=== PATIENT | female | born 1975 | race Caucasian/White ===

== ENCOUNTER 2016-10-30 18:50 | Emergency (ER) | payer SELFPAY ==
[~2016-10-30] VITALS: Ht 160 cm; Wt 113.4 kg
[2016-10-30 19:56] VITALS: BP 116/51
--- NOTE | 2016-10-30 20:30 | NUR ---
41 Y/O F W/C/O choked on chicken bone at restaurant about 5:30pm. pt was able to cough up bone on her own. PT C/O BURNING PAIN ON THROAT AND ESOPHAGUS. PT ON MONITOR, NO S/S OF DISTRESS NOTED. PT HAS BEEN SEEN BY [facility].
--- NOTE | 2016-10-30 20:51 | NUR ---
Patient to bed 08.
--- NOTE | 2016-10-30 21:35 | NUR ---
Patient back from XRAY via wheelchair per tech.
[2016-10-30] MEDS ORDERED: LIDOCAINE VISCOUS 2% 20 ML UDC PO ONE (21:40)
[2016-10-30 22:34] VITALS: BP 114/57
--- NOTE | 2016-10-30 22:34 | NUR ---
Patient discharged with v/s stable. Written and verbal after care instructions given and explained. Patient alert, oriented and verbalized understanding of instructions. Ambulatory with steady gait. All questions addressed prior to discharge. ID band removed. Patient advised to follow up with PMD OR RETURN TO ER IF CONDITION WORSENS. Rx of IBUPROFENgiven. Patient educated on indication of medication including possible reaction and side effects. Opportunity to ask questions provided and answered.
== END 2016-10-30 22:34 | disposition home or self-care (01) ==
LOC: MED 18:50
DX: R09.89 Other specified symptoms and signs involving the circulatory and respiratory systems (principal)